=== PATIENT | male | born 1995 | race Hispanic/Latino ===

== ENCOUNTER 2018-09-28 03:43 | Emergency (ER) | payer SELFPAY ==
--- NOTE | 2018-09-28 07:52 | CT ---
CT HEAD WITHOUT CONTRAST: INDICATIONS: Injury. Pain related to fall. FINDINGS: Motion artifact limits evaluation. No mass producing acute intracranial hemorrhage, midline shift, o r ventriculomegaly present. There is scattered paranasal sinus opacification, notably at the ethmoid sinus. No depressed calvarial fracture. A mild right frontal scalp contusion is seen. IMPRESSION: Motion artifact does limit the assessment. No definite acute intracranial abnormalities are visualiz ed. POS: RAND
--- NOTE | 2018-09-28 07:54 | CT ---
CT FACIAL BONES WITHOUT CONTRAST: INDICATIONS: Fall with facial injury. Pain. FINDINGS: No acute displaced orbital wall fracture. No retrobulbar hematoma or mass effect. There is mild buc mer of the bilateral nasal bones. Underlying ethmoid sinus opacification is present bilaterally. There is prominence of the nasal soft tissues. No fracture involving the zygomatic arches or the pte rygoid plates. No posttraumatic dislocation of either temporomandibular joint. Mucosal thickening a nd retention cyst formation are seen within the maxillary sinuses. No displaced maxillary sinus frac ture bilaterally. IMPRESSION: Mild bilateral nasal bone deformities. Correlate clinically. POS: RAND
--- NOTE | 2018-09-28 07:56 | CT ---
CT CERVICAL SPINE WITHOUT CONTRAST: INDICATIONS: Neck injury related to fall. Pain. FINDINGS: There is persistent patient motion throughout the exam, despite repeated imaging attempts. This does preclude reliable assessment of the cervical spine and could obscure underlying pathology. No defin ite acute malalignment is seen, within limitations. No compression deformity of the cervical spine v ertebrae. The evaluation is otherwise limited. IMPRESSION: Markedly limited examination due to persistent patient motion, as discussed above. As necessary, follow-up imaging may be obtained when the patient is able to tolerate stable positioni ng for the duration of imaging. POS: RAND
== END 2018-09-28 09:05 | disposition home or self-care (01) ==
LOC: ERS 03:43
DX: S02.2XXA Fracture of nasal bones, initial encounter for closed fracture (principal); S00.83XA Contusion of other part of head, initial encounter; F32.9 Major depressive disorder, single episode, unspecified; F17.210 Nicotine dependence, cigarettes, uncomplicated; W01.198A Fall on same level from slipping, tripping and stumbling with subsequent striking against other object, initial encounter
CPT/HCPCS: 70450; 70486; 72125